=== PATIENT | female | born 1970 | race Caucasian/White ===

== ENCOUNTER 2018-04-02 21:10 | Emergency (ER) | payer OTHER ==
[~2018-04-02] VITALS: Ht 162.6 cm; Wt 81.6 kg
[~2018-04-02 21:10] MED LIST: KETO10TA2 PO; LYRICA50 MG
[2018-04-02] MEDS ORDERED: TOPROL XL50 M1 (21:26)
[2018-04-03] MEDS ORDERED: KETO10TA2 PO (08:21)
[2018-04-03] MEDS ORDERED: CIPRO500 MG PO (08:21)
== END 2018-04-03 08:34 | disposition home or self-care (01) ==
LOC: ER 21:10
DX: N20.0 Calculus of kidney (principal); K52.9 Noninfective gastroenteritis and colitis, unspecified; R10.32 Left lower quadrant pain

== ENCOUNTER 2020-10-08 17:58 | Emergency (ER) | payer OTHER ==
[~2020-10-08] VITALS: Ht 162.6 cm; Wt 93.4 kg
[~2020-10-08 17:58] MED LIST changes: +CIPRO500 MG PO; +TOPROL XL50 M1
[2020-10-08] MEDS ORDERED: [UNRECOGNIZED DRUG - REMARK] (18:19)
[2020-10-08] MEDS ORDERED: PERCOCET 5-3251 EACH PO (22:13)
== END 2020-10-08 22:23 | disposition home or self-care (01) ==
LOC: ER 17:58
DX: S92.331A Displaced fracture of third metatarsal bone, right foot, initial encounter for closed fracture (principal); W22.8XXA Striking against or struck by other objects, initial encounter; Y93.89 Activity, other specified; Y92.092 Bedroom in other non-institutional residence as the place of occurrence of the external cause; Y99.8 Other external cause status

== ENCOUNTER 2022-12-02 14:20 | Emergency (ER) | payer OTHER ==
[~2022-12-02] VITALS: Ht 162.6 cm; Wt 92.5 kg
[~2022-12-02 14:20] MED LIST changes: +PERCOCET 5-3251 EACH PO; +[UNRECOGNIZED DRUG - REMARK]
[2022-12-02] MEDS ORDERED: SYNTHROID50 MCG PO (15:15)
[2022-12-02] MEDS ORDERED: ATIVAN1 M1 PO (15:15)
== END 2022-12-02 22:37 | disposition home or self-care (01) ==
LOC: ER 14:20
DX: R51.9 Headache, unspecified (principal)
CPT/HCPCS: 72040; 96372; 99284; J1885; J2360

== ENCOUNTER 2024-02-11 11:55 | Emergency (ER) | payer OTHER ==
[~2024-02-11] VITALS: Ht 162.6 cm; Wt 69.4 kg
[~2024-02-11 11:55] MED LIST changes: +ATIVAN1 M1 PO; +SYNTHROID50 MCG PO
[2024-02-11 12:15] VITALS: BP 107/74; O2SAT 98
[2024-02-11] MEDS ORDERED: ROSUVASTATIN CA20 MG PO (12:16)
[2024-02-11] MEDS ORDERED: KETOROLAC TROMETHAMINE 60 MG VIAL IM ONE (15:45)
[2024-02-11] MEDS ORDERED: CEFTRIAXONE SODIUM 1,000 MG VIAL IM ONE (15:45)
[2024-02-11 16:07] LABS: HEMATOCRIT 38.3 % (36.0-45.00); MEAN CELL VOLUME 86.7 fL (80.00-100.00); MEAN CORPUSCULAR HEMOGLOBIN 29.4 pg (27.00-32.0); MEAN CORPUSCULAR HGB CONC 33.9 g/dl (32.0-36.0); PLATELET COUNT 283 K/uL (150-450); RED BLOOD COUNT 4.41 M/uL (4.00-6.00); RED CELL DISTRIBUTION WIDTH 15.6 % (11.5-14.5)
[2024-02-11 16:14] LABS: URINE APPEARANCE Turbid; URINE BILIRRUBIN Negative (NEGATIVE); URINE BLOOD Small; URINE COLOR Dark Yellow; URINE GLUCOSE Negative (NEGATIVE); URINE KETONE Trace (NEGATIVE); URINE LEUKOCYTE Moderate; URINE NITRATE Negative; URINE PROTEIN 30 (NEGATIVE)
[2024-02-11 16:18] LABS: URINE EPITHELIAL CELLS 26.8 uL (0.0-38.8); URINE RBC 7.9 uL (0.0-20.8); URINE WBC 456.3 uL (0.0-23.2)
[2024-02-11 16:40] LABS: URINE BACTERIA > 9821.5 uL (0.0-1933)
[2024-02-11 16:41] LABS: URINE CRYSTALS MANY /HPF
== END 2024-02-11 16:50 | disposition home or self-care (01) ==
LOC: ER 11:57
PROVIDERS: Preventive Medicine Public Health & General Preventive Medicine
DX: N39.0 Urinary tract infection, site not specified (principal); I10 Essential (primary) hypertension; E03.9 Hypothyroidism, unspecified
CPT/HCPCS: 36415; 96372; 99283; J0696; J1885